=== PATIENT | female | born 1990 | race Caucasian/White ===

== ENCOUNTER 2019-01-21 14:49 | Emergency (ER) | payer OTHER ==
[~2019-01-21] VITALS: Ht 165.1 cm; Wt 71.7 kg
--- NOTE | 2019-01-21 15:00 | NUR ---
PATIENT AMBULATED TO BED 7 AT THIS TIME.
[2019-01-21 15:04] VITALS: BP 110/56
--- NOTE | 2019-01-21 15:15 | NUR ---
PA CHICAS AT BESIDE EVALUATING PATIENT.
--- NOTE | 2019-01-21 15:20 | NUR ---
Pt presents to ED with c/o dizziness x this morning. Pupils equal and reactive to light bilaterally. No facial droop noted. No smile deficit noted. Speech normal for patient. Patient is alert and oriented to person, place, time and event. Bilateral hand bi architect equal. Bilateral foot push equal. Denies nausea, vomiting, fever. Assisted to gown, connected to monitor. Bed locked and in lowest position. ERMD to evaluate pt.
[2019-01-21 15:43] LABS: BASOPHILS % (AUTO) 0.4 % (0.0-2.0); EOSINOPHILS # (AUTO) 0.1 K/uL (0-0.4); EOSINOPHILS % (AUTO) 0.9 % (0.0-4.0); HEMATOCRIT 40.2 % (36-48); HEMOGLOBIN 13.1 g/dL (12.0-16.0); LYMPHOCYTES # (AUTO) 3.1 K/uL (2.5-16.5); LYMPHOCYTES % (AUTO) 37.4 % (20.5-51.1); MEAN CORPUSCULAR HEMOGLOBIN 29 pg (27-31); MEAN CORPUSCULAR HGB CONC 33 g/dL (33-37); MEAN CORPUSCULAR VOLUME 87.4 fL (80-94); MONOCYTES # (AUTO) 0.8 K/uL (0.8-1.0); NEUTROPHILS # (AUTO) 4.4 K/uL (1.8-7.7); NEUTROPHILS % (AUTO) 52.3 % (42.2-75.2); PLATELET COUNT (AUTO) 216 K/uL (140-450); RED BLOOD CELL COUNT(AUTO) 4.61 MIL/uL (4.20-5.40); RED CELL DISTRIBUTION WIDTH 13.7 % (11.6-13.7); WHITE BLOOD COUNT (AUTO) 8.4 K/uL (4.8-10.8)
[2019-01-21 15:44] LABS: BILIRUBIN,URINE NEGATIVE (NEGATIVE); BLOOD, URINE NEGATIVE (NEGATIVE); COLOR,URINE YELLOW (YELLOW); LEUKOCYTE ESTERASE ,URINE NEGATIVE (NEGATIVE); NITRITE, URINE NEGATIVE (NEGATIVE); UGLUCOSE NEGATIVE (NEGATIVE)
[2019-01-21] MEDS ORDERED: NACL 0.9% 1,000 ML IV ONE (15:45)
[2019-01-21 15:48] LABS: APPEARANCE,URINE CLEAR (CLEAR)
[2019-01-21 15:59] LABS: ALBUMIN 4.3 g/dL (3.4-5.0); ANION GAP 16.6 (8-16); CARBON DIOXIDE 25.4 mmol/L (21-32); CREATININE 0.8 mg/dL (0.6-1.3); TOTAL BILIRUBIN 0.4 mg/dL (0.0-1.0)
[2019-01-21 16:01] LABS: BARBITURATE, URINE NEG. ng/ml (NEG <=200); BENZODIAZEPINE, URINE NEG. ng/mL (NEG <=200); CANNABINOID, URINE NEG. ng/mL (NEG <=50); COCAINE, URINE NEG. ng/mL (NEG <=300); OPIATE, URINE NEG. ng/mL (NEG <=2000); PHENCYCLIDINE SCREEN,URINE NEG. ng/mL (NEG <=25)
--- NOTE | 2019-01-21 16:43 | NUR ---
PT RESTING COMFORTABLY IN BED. DENIES DIZZINESS AT THIS TIME. VERBALIZED FEELING "BETTER" AFTER THE IVF ADMINISTRATION.
[2019-01-21 17:08] VITALS: BP 105/64
== END 2019-01-21 17:08 | disposition home or self-care (01) ==
LOC: MED 14:49
DX: R42 Dizziness and giddiness (principal); F41.9 Anxiety disorder, unspecified
CPT/HCPCS: 36415; 71045; 80053; 80305; 81003; 81025; 85025; 93005; 96360; 99284; J7030

== ENCOUNTER 2022-01-19 15:30 | Observation (INO) | payer OTHER ==
[~2022-01-19] VITALS: Ht 152.4 cm; Wt 73.5 kg
[2022-01-19 16:00] VITALS: BP 104/57
== END 2022-01-19 17:55 | disposition home or self-care (01) ==
LOC: MLD 15:30
PROVIDERS: ADMIT Obstetrics & Gynecology; ATTEND Obstetrics & Gynecology
DX: O99.891 Other specified diseases and conditions complicating pregnancy (principal); Z20.822 Contact with and (suspected) exposure to COVID-19; M54.9 Dorsalgia, unspecified; O26.892 Other specified pregnancy related conditions, second trimester; R10.9 Unspecified abdominal pain; Z3A.26 26 weeks gestation of pregnancy
CPT/HCPCS: 59025; 81000; 87426; G0378

== ENCOUNTER 2022-04-09 11:03 | Observation (INO) | payer OTHER ==
[~2022-04-09] VITALS: Ht 160 cm; Wt 77.1 kg
[2022-04-09] MEDS ORDERED: PNV1TABL5 PO (11:29)
== END 2022-04-09 12:05 | disposition home or self-care (01) ==
LOC: MLD 11:03
PROVIDERS: ADMIT Obstetrics & Gynecology; ATTEND Obstetrics & Gynecology
DX: O26.893 Other specified pregnancy related conditions, third trimester (principal); Z20.822 Contact with and (suspected) exposure to COVID-19; R10.9 Unspecified abdominal pain; R09.89 Other specified symptoms and signs involving the circulatory and respiratory systems; R50.9 Fever, unspecified; R51.9 Headache, unspecified; Z3A.37 37 weeks gestation of pregnancy
CPT/HCPCS: 87426; G0378; G0379

== ENCOUNTER 2023-04-12 12:17 | Emergency (ER) | payer OTHER ==
[~2023-04-12] VITALS: Ht 152.4 cm; Wt 69.4 kg
[~2023-04-12 12:17] MED LIST: PNV1TABL5 PO
[2023-04-12 12:27] VITALS: BP 130/65; PULSE 62; RESP 14; TEMP 98.2; O2SAT 100
== END 2023-04-12 14:08 | disposition home or self-care (01) ==
LOC: MED 12:17
DX: R07.89 Other chest pain (principal); R03.0 Elevated blood-pressure reading, without diagnosis of hypertension; Z79.899 Other long term (current) drug therapy
CPT/HCPCS: 93005; 99283